=== PATIENT | female | born 1975 | race Caucasian/White ===

== ENCOUNTER 2024-04-10 14:41 | Outpatient (AMB) | payer OTHER, SELFPAY ==
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
[2024-04-10 14:44] VITALS: BP 112/72; PULSE 58; O2SAT 98; BMI 27.9
--- OUTSIDE RECORDS SUMMARY | 2024-04-10 15:43 | XMS_ITS | Patient Health Record ---
Author Organization [facility] Address [address] [place] [address] Care Team Providers Care Personal Banker Name Role Phone Shailesh Dill Primary Care Provider KHUSHBOO [place] Unavailable [phone] Allergies Allergen (clinical drug ingredient) Drug/Non Drug Allergy documented on EMR Reaction Allergy Type Onset Date Status codeine Codeine Sulfate Unknown Drug Allergy A ctive Reason For Referral No Information Medications Medication SIG (Take, Route, Frequency, Duration) Notes Start Date End Date Status Clopidogrel Bisulfate 75 MG 1 tablet Ora lly Once a day for 30 day(s) Active lamoTRIgine 25 MG 1 tablet Orally for 30 day(s) Active Budesonide ER 9 MG 1 tablet in the morn ing Orally Once a day for 30 day(s) Active Omeprazole 40 MG 1 capsule Orally Onc e a day for 90 days 06/07/2019 Active Omeprazole 40 MG 1 capsule Orally Onc e a day for 30 day(s) 04/20/2018 Active Abilify 30 MG 1 tablet Orally Once a day for 30 day(s) Active PROzac 40 MG 1 capsule Orally Onc e a day for 30 day(s) Active Atorvastatin Calcium 40 MG 1 tablet Oral ly Once a day for 30 day(s) Active Vraylar 3 MG 1 capsule Orally Onc e a day for 30 day(s) Active Zoloft 25 MG 1 tablet Orally Once a day for 30 day(s) Active Social History Tobacco Use: Social History Observation Description Date Details (start date - stop date) Current Smoker NA - NA Tobacco Use/Smoking Question Answer Notes Are you a current smoker How many cigarettes a day do you smoke? 6-10 Alcohol Screen Question Answer Notes Did you have a drink containing alcohol in the p ast year? No Points 0 Interpretation Negative Problems Problem Type SNOMED Code ICD Code Onset Dates Problem Status W/U Status Risk Notes Problem 0829304 Other gastritis without bleeding (K29.60) Active confirmed Problem 042282253 GERD with esophagitis (K21.0) Active confirmed Problem 93111124 Smoker (F17.200) Active confirmed Plan Of Treatment No Information Insurance Providers Payer Name Payer Address Payer Phone Subscriber Number Group Number Insured Name Patient Relationship to Insured Coverage Start Date Coverage End Date [facility] [address] CLAIMS DEPT [place], [place] [id number] Tania Samaniego Self - patient is the insured Medical (General) History Medical History History ICD Code History of Heart Attack heart murmur mitral valve prolapse stroke Surgical History Surgery Date(Month/Year) Hysterectomy Removal of ovaries
--- OUTSIDE RECORDS SUMMARY | 2024-04-10 15:43 | XMS_ITS | Continuity of Care Document ---
Author Organization [facility] Address [address] [place] [address] Phone Care Team Providers Care Cement Cutter Name Role Phone Adrienne Menjivar MD Unavailable Unavailable Medications Medication Instructions Dosage Effective Dates (start - stop) Status Comments methylprednisolone 4 mg tablet take 4 tablets daily x 5 days, 3 tablets daily x 5 days, 2 tablets daily x 5 days, 1 tablet daily x 5 days - Active sulfasalazine 500 mg tablet 3 tablet 2 times a day for 30 days - Active sulfasalazine 500 mg tablet 2 tablet 2 times a day - Active methylprednisolone 4 mg tablet take 4 tablets daily x 5 days, 3 tablets daily x 5 days, 2 tablets daily x 5 days, 1 tablet daily x 5 days - Active sulfasalazine 500 mg tablet take 1 tablet daily for 1 week, then take 1 tablet twice daily for 1 week, then take 2 tabs twice daily - Active sulfasalazine 500 mg tablet 2 tablet 2 times a day [after finishing loading dose] - Active Humira 40 mg/0.8 mL subcutaneous syringe kit one injection every 2 weeks - Active Medrol (Blul) 4 mg tablets in a dose pack 1 dose pk as directed on package - Active folic acid 1 mg tablet 1 tablet every day - Active methotrexate sodium 2.5 mg tablet 6 tablets once a week - Active ondansetron 8 mg disintegrating tablet 8 mg every 8 hours as needed nausea - Active Advance Directives Directive Yes / No Effective Date File Name No Information Encounters Encounter Description Practice Location Reason(s) For Visit Diagnoses Date Provider Providers Copied on Encounter [facility], [address], [place], [address] [place] [address], [place] tel:[phone] [facility] No Information - 3 [facility] [address]. [address], [place], [id number] , [place]. tel: [phone] [facility], [address], [place], [id number], [place] tel:[phone] [facility] No Information 3 [facility] [address]. [address], [place], [id number] , [place]. tel: [phone] [facility], [address], [address] [place] [address], [place] tel:[phone] [facility] Other fdc (current) drug therapyOther fatigueRheumatoid arthritis without rheumatoid factor, multiple sites Apr- 3 [facility] [place]. [address], [place], [id number] , [place]. tel: [phone] [facility], [address], [id number], [place] tel:[phone] [facility] Stiffness of unspecified joint, not elsewhere classifiedPain in unspecified jointRheumatoid arthritis without rheumatoid factor, multiple sitesAntiphospholipi d syndrome 2 [facility]. [address], [place], [id number] , [place]. tel: [phone] [facility], [address], [address], [place] tel:[phone] [facility] Synovitis and tenosynovitis, unspecifiedStiffness of unspecified joint, not elsewhere classifiedPain in unspecified jointRheumatoid arthritis without rheumatoid factor, multiple sites Nov-3 2 [facility] [address], [place], [place], [id number] , [place]. tel: [phone] [facility], [address], [place], [place], [address], [place] tel:[phone] [facility] Synovitis and tenosynovitis, unspecifiedStiffness of unspecified joint, not elsewhere classifiedPain in unspecified jointRheumatoid arthritis without rheumatoid factor, multiple sites Nov- 2 [facility] [address]. [address], [place], [place], [id number] , [place]. tel: [phone] [facility], [address], [place], [place], [id number], [place] tel:[phone] [facility] Synovitis and tenosynovitis, unspecifiedStiffness of unspecified joint, not elsewhere classifiedUnspecifie d osteoarthritis, unspecified siteRheumatoid arthritis without rheumatoid factor, multiple sites Oct-2 2 [facility] [address], [place], [place], [address] , [place]. tel: [phone] [facility], [address], [place], [place], [id number], [place] tel:[phone] [facility] Synovitis and tenosynovitis, unspecifiedStiffness of unspecified joint, not elsewhere classifiedUnspecifie d osteoarthritis, unspecified siteRheumatoid arthritis without rheumatoid factor, multiple sites [address] [facility] [address], [place], [place], [id number] , [place]. tel: [phone] [facility], [address], [place], [place], [id number], [place] tel:[phone] [facility] No Information 0 2 [facility], [place], [place], [id number] , [place]. tel: [phone] [facility], [address], [place], [place], [address], [place] tel:[phone] [facility] Synovitis and tenosynovitis, unspecifiedStiffness of unspecified joint, not elsewhere classifiedUnspecifie d osteoarthritis, unspecified siteRheumatoid arthritis without rheumatoid factor, multiple sites 2 [facility] [address], [place], [place], [address] , [place]. tel: [phone] [facility], [address], [place], [place], [address], [place] tel:[phone] [facility] Synovitis and tenosynovitis, unspecifiedStiffness of unspecified joint, not elsewhere classifiedUnspecifie d osteoarthritis, unspecified siteRheumatoid arthritis without rheumatoid factor, multiple sites 2 [facility] [address], [place], [place], [address] , [place]. tel: [phone] [facility], [address], [place], [place], [address], [place] tel:[phone] [facility] Rheumatoid arthritis without rheumatoid factor, multiple sites 2 [facility] [address], [place], [place], [address] , [place]. tel: [phone] [facility], [address], [place], [place], [address], [place] tel:[phone] [facility] Synovitis and tenosynovitis, unspecifiedStiffness of unspecified joint, not elsewhere classifiedPain in unspecified jointUnspecified osteoarthritis, unspecified site 1 [facility] [address], [place], [place], [address] , [place]. tel: [phone] Family History Family Member Type Diagnosis Age At Onset No Information Payers Payer name Insurance type Covered libertarian ID Authoriza tion(s) No Information Social History Type Description Quantity Date Captured Comments Sex Female Smoking Status No Information Chief Complaint And Reason For Visit No Information Reason For Referral Reason For Referral No Information History Of Present Illness Encounter Date Complaint History Of Prese nt Illness No Information Functional Status Date Functional Assessmen t No Information Instructions Date Instruction Additional Infor mation No Information Assessments Type Assessment Date No Information Patient Care Teams Name Effective Dates (start - stop) Status Members No Information
--- OUTSIDE RECORDS SUMMARY | 2024-04-10 15:43 | XMS_ITS | Patient Health Record ---
Author Organization [facility] Address [address] [facility] [address] [address] [place] [address] Care Team Providers Care Cage Unloader Name Role Phone WAYNE MITCHELL Unavailable [phone] Nicole PAULA, NL Robin Unavailable Unavail able ALLERGIES Allergen (clinical drug ingredient) Drug/Non Drug Allergy documented on EMR Reaction Allergy Type Onset Date Status codeine Codeine Unknown Drug Allergy Active REASON FOR REFERRAL No Information MEDICATIONS Medication SIG (Take, Route, Frequency, Duration) Notes Start Date End Date Status HYDROcodone-Acetaminophen 5-325 MG 1 tablet as needed Orally every 6 hrs Active Atorvastatin Calcium 40 MG 1 tablet Orally Once a day Active Humira Pen 40 MG/0.4ML as directed Subcutaneous Active DULoxetine HCl 40 MG 1 capsule Orally On ce a day Active Gabapentin 800 MG 1 tablet Orally Thre e times a day Active traZODone HCl 100 MG 1 tablet at bedtime Orally Once a day Active Baclofen 10 MG 1 tablet as needed O rally Twice a day Active Omeprazole 40 MG 1 capsule 30 minutes before morning meal Orally Once a day Active Aspirin 81 MG 1 capsule Orally Onc e a day Active Plavix 75 MG 1 tablet Orally Once a day Active SOCIAL HISTORY Tobacco Use: Social History Observation Description Date Details (start date - stop date) Never Smoker NA - NA Sex Assigned At : Social History Observation Description Sex Assigned At Unknown Tobacco Use/Smoking Question Answer Notes Are you a: never smoker PLAN OF TREATMENT No Information Insurance Providers Payer Name Payer Address Payer Phone Subscriber Number Group Number Insured Name Patient Relationship to Insured Coverage Start Date Coverage End Date Medicaid [employer] [address] [place] [place] [address] [id number] Tania Blank Self - patient is the insured MEDICAL (GENERAL) HISTORY Medical History History ICD Code Arthritis blood clots depression fibromyalgia rheumatoid arthritis stroke antiphospholipid syndrome Surgical History Surgery Date(Month/Year) rotator cuff surgery Kidney Stones Catheter hysterectomy carpal tunnel release
--- OUTSIDE RECORDS SUMMARY | 2024-04-10 15:43 | XMS_ITS | Clinical Summary ---
Author Organization [facility] [place] [address] Care Team Providers Care Shook Machine Operator Name Role Phone Unavailable Primary Care Provider Unavailabl e Social History Tobacco Use Types Packs/Day Years Used Date Smoking Tobacco: Never Assessed Comments Unknown Sex and Gender Information Value Date Recorded Sex Assigned at Not on file Legal Sex Female 12:58 AM EDT Gender Identity Not on file Sexual Orientation Not on file Plan of Treatment Health Maintenance Due Date Last Done Comments Breast Cancer Screening 1976 DTaP,Tdap,and Td Vaccines (1 - Tdap) 08/01/1995 Hepatitis B Vaccines (1 of 3 - 19+ 3-dose series) 08/01/1995 Cervical Cancer Screening: P ap Smear 1997 COVID-19 Vaccine (2023-2 5 season) 2023 Influenza Vaccine (#1) 2023 Colorectal Cancer Screening: Colonoscopy 12/18/2023 Depression Screening 12/18/2023 HIV Screening 12/18/2023 Hepatitis C Screening 12/18/2023 Social Influencers of Health Screening 12/18/2023 HIB Vaccines Aged Out No longer eligi ble based on patient's age to complete this topic HPV Vaccines Aged Out No longer eligi ble based on patient's age to complete this topic Hepatitis A Vaccines Aged Out No long er eligible based on patient's age to complete this topic IPV Vaccines Aged Out No longer eligi ble based on patient's age to complete this topic MMR Vaccines Aged Out No longer eligi ble based on patient's age to complete this topic Meningococcal ACWY Vaccine Aged Out N o longer eligible based on patient's age to complete this topic Meningococcal B Vacine Aged Out No lo nger eligible based on patient's age to complete this topic Pneumococcal Vaccine: Pediat rics (0 to 5 Years) and At-Risk Patients (6 to 64 Years) Aged Out No longer eligible b ased on patient's age to complete this topic RSV Immunization Patients Un anne marie 20 months Aged Out No longer eligible b ased on patient's age to complete this topic Varicella Vaccines Aged Out No longer eligible based on patient's age to complete this topic
== END 2024-04-10 15:11 | disposition home or self-care (01) ==
PROVIDERS: PCP Nurse Practitioner Family; Visit Provider Psychiatry & Neurology Neurology
DX: R25.9 Unspecified abnormal involuntary movements (principal); R26.9 Unspecified abnormalities of gait and mobility
CPT/HCPCS: 99204; G2211

== ENCOUNTER → 2024-04-10 14:41 | Outpatient (BNVA) | payer OTHER, SELFPAY | PROVIDERS: PCP Nurse Practitioner Family; Visit Provider Psychiatry & Neurology Neurology | DX: R25.9 Unspecified abnormal involuntary movements (principal); R26.9 Unspecified abnormalities of gait and mobility | CPT/HCPCS: 99202 ==